=== PATIENT | male | born 1980 | race Two or more races ===

== ENCOUNTER 2020-02-23 22:22 | Emergency (ER) | payer OTHER ==
[2020-02-23] MEDS ORDERED: GLUCAGON 1 MG/ML VIAL IVP STA (22:38)
--- NOTE | 2020-02-23 23:00 | XR ---
EXAMINATION TYPE: XR soft tissue neck DATE OF EXAM: 02/23/2020 COMPARISON: NONE HISTORY: Pain TECHNIQUE: 2 views FINDINGS: Epiglottis is normal. Subglottic trachea appears normal. Prevertebral soft tissues appear n ormal. Tonsils and adenoids appear normal. IMPRESSION: Normal cervical soft tissue exam.
[2020-02-23] MEDS ORDERED: MAG HYDROX/AL HYDROX/SIMETH 30 ML, HYOSCYAMINE ELIXIR 10 ML, LIDOCAINE VISCOUS 2% 10 ML PO STA ×3 (23:27)
--- NOTE | 2020-02-23 23:44 | ED ---
SOB HPI - General Chief Complaint: Shortness of Breath Stated Complaint: DOTTY Time Seen by Provider: 02/23/20 22:32 Source: patient Mode of arrival: ambulatory Limitations: no limitations - History of Present Illness Initial Comments: This patient is a 39-year-old man who presents with concern that he has something lodged in his throat. The patient had been at a barbecue, and was eating when he felt something may be stuck in the throat he indicates the area of the sternal notch. He states that he was not able to drink anything. He also felt like it may be interfering with his breathing. -: hour(s) Severity: moderate Quality: sharp Consistency: intermittent Improves With: nothing Worsens With: nothing Associated Symptoms: denies other symptoms Treatments Prior to Arrival: none - Related Data Home Medications Medication Instructions Recorded Confirmed No Known Home Medications 02/23/20 02/23/20 Allergies Allergy/AdvReac Type Severity Reaction Status Date / Time bee venom protein (honey bee) Allergy Anaphylaxis Verified 02/23/20 23:42 Review of Systems ROS Statement: Those systems with pertinent positive or pertinent negative responses have been documented in the HPI. ROS Other: All systems not noted in ROS Statement are negative. Constitutional: Denies: fever, chills ENT: Reports: throat pain. Denies: ear pain, congestion Respiratory: Reports: as per HPI, dyspnea. Denies: cough, wheezes Cardiovascular: Denies: chest pain, syncope Gastrointestinal: Denies: abdominal pain, vomiting, diarrhea Genitourinary: Denies: dysuria Neurological: Denies: headache, weakness Past Medical History Past Medical History: No Reported History History of Any Multi-Drug Resistant Organisms: None Reported Past Surgical History: No Surgical Hx Reported Past Psychological History: No Psychological Hx Reported Smoking Status: Current some day smoker Past Alcohol Use History: Occasional Past Drug Use History: Marijuana General Exam Limitations: no limitations General appearance: alert, in no apparent distress Head exam: Present: atraumatic, normocephalic Eye exam: Present: normal appearance. Absent: scleral icterus, conjunctival injection ENT exam: Present: normal oropharynx, mucous membranes moist Neck exam: Present: normal inspection, full ROM. Absent: tenderness, meningismus, lymphadenopathy, thyromegaly Respiratory exam: Present: normal lung sounds bilaterally. Absent: respiratory distress, wheezes, rales, rhonchi, stridor Cardiovascular Exam: Present: regular rate, normal rhythm, normal heart sounds. Absent: systolic murmur, diastolic murmur, rubs, gallop GI/Abdominal exam: Present: soft. Absent: tenderness, guarding, rebound Extremities exam: Present: normal inspection Neurological exam: Present: alert Skin exam: Present: warm, dry, intact, normal color. Absent: rash Course Vital Signs 02/23/20 02/23/20 02/24/20 22:24 23:23 00:11 Temperature 97.8 F 97.6 F Pulse Rate 59 L 80 Respiratory 18 22 18 Rate Blood Pressure 142/94 126/86 O2 Sat by Pulse 98 96 Oximetry Medical Decision Making - Medical Decision Making Patient is a 39-year-old man with sensation of food impaction. He is given IV glucagon and then sent for x-ray as he also was feeling some dyspnea. The pa mariya's airway does appear to be normal in the imaging. Following the medication he was feeling much better. I did have him drink water and he is able to swallow water without difficulty. He did have some persistent esophageal irritation and given GI cocktail and felt better and wanted to go home. Discussed appropriate further care and follow-up as well as return parameters. Disposition Clinical Impression: Food impaction of esophagus Disposition: HOME SELF-CARE Condition: Good Instructions (If sedation given, give patient instructions): Esophageal Foreign Body (ED) Is patient prescribed a controlled substance at d/c from ED?: No Referrals: Nonstaff,Physician [Primary Care Provider] - 1-2 days
[2020-02-24 00:13] VITALS: BP 126/86; PULSE 80; RESP 18; TEMP 97.6
== END 2020-02-24 00:31 | disposition home or self-care (01) ==
LOC: EC 22:22
DX: T18.128A Food in esophagus causing other injury, initial encounter (principal); F17.200 Nicotine dependence, unspecified, uncomplicated; Z91.030 Bee allergy status; Y92.59 Other trade areas as the place of occurrence of the external cause
CPT/HCPCS: 70360; 99284; 96374; J1610